=== PATIENT | male | born 1975 | race Caucasian/White ===

== ENCOUNTER 2017-01-04 20:48 | Emergency (ER) | payer MEDICAID ==
[2017-01-04 20:48] VITALS: BMI 26.6
[2017-01-04 21:31] VITALS: BP 97/65; PULSE 95; RESP 20; TEMP 98.7; O2SAT 96
--- NOTE | 2017-01-04 22:20 | C.PDOC ---
History Of Present Illness A 41 y/o male is here for detox of heroin, Xanax, alcohol abuse with his last uses being today. Pt denies suicidal or homicidal ideation, or any physical complaints at this time. Time Seen by Provider: 01/04/17 21:58 Chief Complaint (Nursing): Substance Abuse History Per: Patient History/Exam Limitations: no limitations Onset/Duration Of Symptoms: Hrs Current Symptoms Are (Timing): Still Present Suicide/Self Injury Attempted (Context): None Modifying Factor(s): Narcotics (Xanax, heroin, alcohol) Severity: Mild Associated Symptoms: denies: Suicidal Thoughts, Suicidal Plan Involuntary Hold By: None Recent travel outside of the [place]: No Additional History Per: Patient Past Medical History Reviewed: Historical Data, Nursing Documentation, Vital Signs Vital Signs: Last Vital Signs Temp 98.7 F 01/04/17 21:25 Pulse 95 H 01/04/17 21:25 Resp 20 01/04/17 22:41 BP 97/65 L 01/04/17 21:25 Pulse Ox 96 01/04/17 22:34 - Medical History PMH: Anxiety, Back Problems, Depression, HTN, Seizures Denies: Bipolar Disorder, Personality Disorder, Post Traumatic Stress Disorder, Schizophrenia - [facility] Procedures CLOSURE SKIN & SUBCUTANEOUS NEC (03/09/15) INJECT/INFUSE NEC (02/06/05) Family History: States: Unknown Family Hx - Social History Hx Tobacco Use: Yes Hx Alcohol Use: Yes Hx Substance Use: Yes - Immunization History Hx Tetanus Toxoid Vaccination: No Hx Influenza Vaccination: No Hx Pneumococcal Vaccination: No Review Of Systems Constitutional: Positive for: Other (heroin, xanax, alcohol abuse ). Negative for: Fever, Chills Gastrointestinal: Negative for: Nausea, Vomiting, Abdominal Pain Psych: Negative for: Suicidal ideation, Other (Homicidal ideation) Physical Exam - Physical Exam Appears: Non-toxic, No Acute Distress Skin: Warm, Dry Head: Atraumatic, Normacephalic Eye(s): bilateral: Other (Pupils small but reactive) Oral Mucosa: Moist Throat: Normal, No Exudate Cardiovascular: Rhythm Regular, No Murmur Respiratory: Normal Breath Sounds, No Accessory Muscle Use, No Wheezing Gastrointestinal/Abdominal: Soft, No Tenderness Back: Normal Inspection Extremity: Normal ROM, No Pedal Edema, Capillary Refill (<2secs), No Deformity Neurological/Psych: Oriented x3, Normal Speech, Other (No focal deficit) Gait: Steady ED Course And Treatment O2 Sat by Pulse Oximetry: 96 (RA) Pulse Ox Interpretation: Normal Progress Note: Impression: 41 y/o male is here for detox of heroin, xanax, alcohol abuse with his last uses today. Plans: Detox, reassess. Pt was called in for detox however came in 3 hrs late and now there are no beds available as per insemination worker who also explained same to pt. Pt reassured that he will be called once ther is a male bed available. Pt left without signing his discharge papers Disposition Counseled Patient/Family Regarding: Diagnosis, Need For Followup - Disposition Disposition: HOME/ ROUTINE Disposition Time: 22:19 Condition: STABLE Additional Instructions: Please call back Crisis department for available detox beds Return to ER if worse Instructions: Polysubstance Abuse (ED) - Clinical Impression Clinical Impression: Drug dependence - Scribe Statement The provider has reviewed the documentation as recorded by the Scribe Leta magdaleno All medical record entries made by the Elveribkristan were at my direction and personally dictated by me. I have reviewed the chart and agree that the record accurately reflects my personal performance of the history, physical exam, medical decision making, and the department course for this patient. I have also personally directed, reviewed, and agree with the discharge instructions and disposition.
== END 2017-01-04 22:41 | disposition home or self-care (01) ==
LOC: C.ER 20:48
DX: F11.20 Opioid dependence, uncomplicated (principal); F19.20 Other psychoactive substance dependence, uncomplicated; F10.10 Alcohol abuse, uncomplicated; Y90.9 Presence of alcohol in blood, level not specified

== ENCOUNTER 2018-11-03 09:01 | Inpatient (IN) | payer MEDICAID ==
[2018-11-03 09:13] VITALS: BMI 25.8
--- NOTE | 2018-11-03 10:49 | C.PDOC ---
History Of Present Illness 43 y/o male presents to ed for detox, uses 20-30 bags heroin iv, last at 5 am, drinks 5 24 oz beers and 3 pints liquor daily. last drink at 2230. c/o diarrhea and feeling nauseous as well as chronic back pain. Time Seen by Provider: 11/03/18 10:11 Chief Complaint (Nursing): Substance Abuse History Per: Patient History/Exam Limitations: no limitations Onset/Duration Of Symptoms: Days Past Medical History Reviewed: Historical Data, Nursing Documentation, Vital Signs Vital Signs: Last Vital Signs Temp Pulse 74 11/03/18 09:09 Resp 18 11/03/18 09:09 BP 109/71 11/03/18 09:09 Pulse Ox 97 11/03/18 09:09 - Medical History PMH: Anxiety, Back Problems, Depression, HTN, Seizures - [facility] Procedures CLOSURE SKIN & SUBCUTANEOUS NEC (03/09/15) INJECT/INFUSE NEC (02/06/05) Family History: States: Unknown Family Hx - Social History Hx Tobacco Use: Yes Hx Alcohol Use: Yes Hx Substance Use: Yes - Immunization History Hx Tetanus Toxoid Vaccination: No Hx Influenza Vaccination: No Hx Pneumococcal Vaccination: No Review Of Systems Gastrointestinal: Positive for: Nausea, Diarrhea Musculoskeletal: Positive for: Back Pain Physical Exam - Physical Exam Appears: Non-toxic, No Acute Distress Skin: No Rash Head: Atraumatic, Normacephalic Eye(s): bilateral: PERRL, EOMI Tongue: Other (mild tremors ) Neck: Supple Chest: No Tenderness Cardiovascular: Rhythm Regular, No Murmur Respiratory: No Rales, No Rhonchi, No Wheezing, Other (CTA b/l ) Gastrointestinal/Abdominal: Soft, No Tenderness, No Distention Extremity: Capillary Refill (<2 sec ), No Deformity, No Swelling, Other (mild tremore to hands ) Neurological/Psych: Oriented x3, Normal Speech, Normal Cognition ED Course And Treatment - Laboratory Results Result Diagrams: 11/03/18 11:25 11/03/18 11:25 O2 Sat by Pulse Oximetry: 97 (RA) Pulse Ox Interpretation: Normal Medical Decision Making Medical Decision Making: plans: -- chem labs -- blood work -- Ibuprofen -- Zofran 1256 pt is medically cleared for detox. 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 - Scribe Statement The provider has reviewed the documentation as recorded by the Saeed Dowell Do All medical record entries made by the Scribe were at my direction and personally dictated by me. I have reviewed the chart and agree that the record accurately reflects my personal performance of the history, physical exam, medical decision making, and the department course for this patient. I have also personally directed, reviewed, and agree with the discharge instructions and disposition.
[2018-11-03 11:34] LABS: BASO # 0.1 K/uL (0.0-0.2); BASO % 0.8 % (0.0-2.0); EOS # 0.2 K/uL (0.0-0.7); EOS % 3.4 % (0.0-4.0); HEMOGLOBIN 14.6 g/dL (12.0-18.0); LYMPH # 2.6 K/uL (1.0-4.3); LYMPH % 34.7 % (20.0-40.0); MEAN CELL VOLUME 90.6 fL (80.0-94.0); MEAN CORPUSCULAR HEMOGLOBIN 30.7 pg (27.0-31.0); MEAN CORPUSCULAR HGB CONC 33.9 g/dL (33.0-37.0); MEAN PLATELET VOLUME 7.9 fL (7.2-11.7); MONO # 0.5 K/uL (0.0-0.8); MONO % 6.9 % (0.0-10.0); NEUT % 54.2 % (50.0-75.0); NRBC % 0.1 % (0.0-2.0); RBC 4.75 Mil/uL (4.40-5.90); RED CELL DISTRIBUTION WIDTH 13.7 % (11.5-14.5); WHITE BLOOD COUNT 7.4 K/uL (4.8-10.8)
[2018-11-03 11:49] LABS: ALB/GLOB RATIO 1.3 (1.0-2.1); ALBUMIN 4.2 g/dL (3.5-5.0); ALT/SGPT 16 U/L (21-72); AST/SGOT 32 U/L (17-59); BLOOD UREA NITROGEN 16 mg/dL (9-20); CALCIUM 9.2 mg/dl (8.6-10.4); GFR NON-AFRICAN AMERICAN > 60
[2018-11-03 11:51] LABS: URINE AMORPHOUS SEDIMENT MODERATE /ul (<OCC); URINE BILIRUBIN NEGATIVE (NEGATIVE); URINE BLOOD NEGATIVE (NEGATIVE); URINE CLARITY Turbid (Clear); URINE COLOR Amber (YELLOW); URINE GLUCOSE (UA) NORMAL (Normal); URINE LEUKOCYTE ESTERASE NEG Leu/uL (Negative); URINE PROTEIN 1+ mg/dL (NEGATIVE)
[2018-11-03 12:24] LABS: BARBITURATES, UR NEGATIVE (NEGATIVE); PHENCYCLIDINE, UR NEGATIVE (NEGATIVE)
[2018-11-03 12:55] LABS: BENZODIAZEPINES, UR POSITIVE (NEGATIVE); OPIATES, UR POSITIVE (NEGATIVE)
[2018-11-03] MEDS ORDERED: Aluminum Hydroxide/Magnesium Hydroxide Susp (30 mL) PO PRN (13:52)
--- NOTE | 2018-11-03 14:37 | PCM.PSYCH ---
Initial Psychiatric Evaluation - Initial Psychiatric Evaluation Type of Admission: Voluntary Legal Status: Capacity Chief Complaint (in patient's own words): "I'm sick" History of Present Illness and Precipitating Events: Patient is seen, chart reviewed and plan discussed with team. Patient is a 43 year old male, currently from his , no children. He lives in an apartment with his mother on and off. 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 Patient presented to detox for heroin and alcohol use. He currently uses 20-40 bags per day IV. His last use was yesterday evening at 7pm, 5-6 bags. He has been using heroin since he was 14. He has been to detox twice in the past, in [facility] and [facility]. He has been to rehab once, six months ago. His longest period of sobriety was in 2003, for 4 years. He attributes his relapse to coming back to [place]. He has been in a methadone program in the past, 4 years ago, and have received suboxone which he believes he is allergic to. Currently he complains of withdrawal symptoms of nausea, vomiting, stomach aches, anxiety and chills. However, he also looks sedated. COWS is 7 and likely to increase. He got zofran in ED, but he may have used again. Patient also reports alcohol, cocaine, Xanax and cigarette use. He drinks 2-3 pints of vodka per day, Xanax 2 mg, 2-3 times per week, cocaine sporadically. He has used cocaine and Xanax two days ago. He reports feeling agitated, anxious and nervous when not using drugs. He has wdw sx fromalcohol but denies He stated being in and out of assisted due to shoplifting and selling things. He reported feeling depressed due to separation from one month ago. He denies suicidal and homicidal ideations, but has overdosed in the past in May 2018 unintentionally. Upon discharge, he stated wanting to leave [place] and would like to go a program outside of [place]. Psych Hx Anxiety and sleep disorder, depression. Fam Psych Hx denies PMHx Seizures (last seizure within a year) Trauma Work injury, separation from Current Medications: Active Medications Generic Name Dose Route Start Last Admin Trade Name Freq PRN Reason Stop Dose Admin Al Hydrox/Mg Hydrox/Simethicone 30 ml 11/03/18 13:52 Maalox 30 Ml PO TID PRN Indigestion / Heartburn Clonidine HCl 0.1 mg 11/03/18 13:52 Catapres PO Q4 PRN COWS Score More or Equal to 5 Ibuprofen 600 mg 11/03/18 13:52 Motrin Tab PO Q6 PRN Pain, moderate (4-7) Loperamide HCl 2 mg 11/03/18 13:52 Imodium PO Q8 PRN Diarrhea Ondansetron HCl 4 mg 11/03/18 13:52 Zofran Tab PO Q8 PRN Nausea/Vomiting Past Psychiatric History - Past Psychiatric History Pertinent Medical Hx (Current Medical&Sleep Prob, Allergies): Allergies Allergy/AdvReac Type Severity Reaction Status Date / Time FISH Allergy hives Verified 11/03/18 09:07 No Known Home Med 01/14/15 Review of Systems - Psychiatric Psychiatric: Abnormal Sleep Pattern, Anhedonia, Anxiety, Change in Appetite, Depression, Difficulty Concentrating, Irritability. absent: Hallucinations, Homicidal Ideation, Suicidal Ideation Mental Status Examination - Personal Presentation Personal Presentation: Looks stated age - Affect Affect: Constricted - Motor Activity Motor Activity: Calm - Reliability in Providing Information Reliability in Providing Information: Good - Speech Speech: Organized - Mood Mood: Depressed - Formal Thought Process Formal Thought Process: No Impairment - Cognitive Functions Orientation: Person, Place, Situation, Time Sensorium: Drowsy Attention/Concentration: Easily distracted Estimate of Intelligence: Average Judgement: Intact, as evidence by: Insight regarding need for hospitalization Memory: Recent intact, as evidence by: Ability to recall events of the day, Remote intact, as evidenced by: Abilit to recall sig. life events - Risk Risk: Seizure, Withdrawal, Diminished functioning - Strength & Assets Inventory Strength & Assets Inventory: Cooperative - Limitations Limitations: Other DSM 5 DX - DSM 5 DSM 5 Diagnosis: Opioid withdrawal Opioid use d/o severe Alcohol use d/o - severe Sedative hypnotic use d/o - severe Depressive d/o unspecified - Recommended/Plan of Treatment Treatment Recommendations and Plan of Treatment: Taper with methadone Gabapentin for augmentation if needed As needed medications All risks, benefits and alternatives of the meds discussed, and the pt agreed and understood. Attend groups and activities Supportive therapy and psychoeducation VT for abstinence CBT for relapse prevention Encourage MAT Refer to rehab or IOP, and self-help groups Teach healthy lifestyle methods, i.e. diet, exercise, meditation Smoking cessation with VT Nicotine patch if needed 34 min Projected ELOS: 4-5 days - Smoking Cessation Smoking Cessation Initiated: Yes
--- NOTE | 2018-11-03 21:54 | PCM.BM ---
Treatment Plan Problems - Problems identified on initial assessmt Denial Date Initiated: 11/03/18 Time Initiated: 21:52 Assessment reference: NA Status: Active Defensive Coping Date Initiated: 11/03/18 Time Initiated: 21:53 Assessment reference: NA Status: Active Low Motivation to change Date Initiated: 11/03/18 Time Initiated: 21:53 Assessment reference: NA Status: Active Treatment assets and liabiliti Patient Assests: ADL independent, negotiates basic needs, cognitively intact Patient Liabilities: substance abuse - Milieu Protocol Maintain good personal hygiene: daily Encourage regular showers, daily Remind patient to perform daily oral care, daily Assist patient to perform ADL's Conduct patient checks and document Observation sheet: Q15 minutes Maintain personal safety: every shift Educate patient to report safety concerns to staff, every shift Monitor environment for contraband/sharps Medication safety: Monitor for expected outcome, potential side effects: every shift, Assess barriers to learning: every shift, Assess readiness for medication education: every shift
--- NOTE | 2018-11-03 22:46 | CP.PCM.PCO ---
Physician Communication Note - Physician Communication Note Physician Communication Note: Pt started wdw significantly. Admitted to detox inpatient now
[2018-11-04] MEDS ORDERED: Multiple Vitamins Tab PO SCH (11:15)
[2018-11-04 13:09] VITALS: BP 92/43; PULSE 50; RESP 18; TEMP 97.3; O2SAT 99
--- NOTE | 2018-11-04 23:08 | PCM.PYCHDC ---
Mental Status Examination - Mental Status Examination Orientation: Person, Place, Situation, Time Memory: Intact Mood: Anxious Affect: Other (Appropriate) Speech: Appropriate Attention: WNL Concentration: WNL Association: WNL Fund of Knowledge: WNL Formal Thought Process: No Impairment Description of patient's judgement and insight: Poor Psychotic Thoughts and Behaviors: None Suicidal Ideation: No Current Homicidal Ideation?: No Discharge Summary - Discharge Note Reason for Hospitalization: Opioid withdrawal Opioid use d/o severe Alcohol use d/o - severe Sedative hypnotic use d/o - severe Depressive d/o unspecified Laboratory Data: Reviewed Consultations:: List each consultation separately and include: 1. Reason for request. 2. Findings. 3. Follow-up Summary of Hospital Course include:: 1. Description of specific treatment plan utilized for patients during their course of treatmen. 2. Summarize the time- course for resolution of acute symptoms and/or regressed behaviors. 3. Describe issues identified and worked on during hospitalization. 4. Describe medication utilized. 5. Describe medical problems identified and treated. 6. Reassessment of suicide risk Summary of Hospital Course: Patient is seen, chart reviewed and plan discussed with team. Patient is a 43 year old male, currently from his , no children. He lives in an apartment with his mother on and off. 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 Patient presented to detox for heroin and alcohol use. He currently uses 20-40 bags per day IV. His last use was yesterday evening at 7pm, 5-6 bags. He has been using heroin since he was 14. He has been to detox twice in the past, in [facility] and [facility]. He has been to rehab once, six months ago. His longest period of sobriety was in 2003, for 4 years. He attributes his relapse to coming back to [place]. He has been in a methadone program in the past, 4 years ago, and have received suboxone which he believes he is allergic to. Currently he complains of withdrawal symptoms of nausea, vomiting, stomach aches, anxiety and chills. However, he also looks sedated. COWS is 7 and likely to increase. He got zofran in ED, but he may have used again. Patient also reports alcohol, cocaine, Xanax and cigarette use. He drinks 2-3 pints of vodka per day, Xanax 2 mg, 2-3 times per week, cocaine sporadically. He has used cocaine and Xanax two days ago. He reports feeling agitated, anxious and nervous when not using drugs. He has wdw sx fromalcohol but denies He stated being in and out of [facility] due to shoplifting and selling things. He reported feeling depressed due to separation from one month ago. He denies suicidal and homicidal ideations, but has overdosed in the past in May 2018 unintentionally. Upon discharge, he stated wanting to leave [place] and would like to go a program outside of [place]. During his stay in the hospital patient was started on methadone taper for opioid withdrawal symptoms and also on Librium for alcohol withdrawal symptoms. Patient was also started on other PRN medications. Once on day 2 of detox, patient decided to leave without completion of the treatment. Patient was educated to complete treatment, patient refused. Patient was also educated that in case of any adverse events including relapse, decompensation, overdose or even of the patient, patient will be responsible for his actions. Patient understood and agreed with above but still refused to stay and left the unit AGAINST MEDICAL ADVICE. At the time of evaluation and discharge, patient had no delusions, no auditory or visual hallucinations, no suicidal ideations or homicidal ideations. - Final Diagnosis (DSM 5) Condition upon Discharge: FAIR Disposition: AGAINST MEDICAL ADVICE - Smoking Cessation Smoking Cessation Medication prescribed: No - Antipsychotic Medications Pt discharged on 2 or more routine antipsychotic medications: No
== END 2018-11-04 12:55 | disposition left against medical advice (07) | DRG 743 ==
LOC: C.ER 09:01 → C.7D 12:57 → OBSVTOIN 21:54
PROVIDERS: ADMIT Psychiatry & Neurology Psychiatry; ATTEND Psychiatry & Neurology Psychiatry
PROC: HZ2ZZZZ Detoxification Services for Substance Abuse Treatment (ICD-10-PCS; principal; 2018-11-03)
PROC: HZ81ZZZ Medication Management for Substance Abuse Treatment, Methadone Maintenance (ICD-10-PCS; 2018-11-03)
PROC: HZ56ZZZ Individual Psychotherapy for Substance Abuse Treatment, Psychoeducation (ICD-10-PCS; 2018-11-03)
PROC: GZ3ZZZZ Medication Management (ICD-10-PCS; 2018-11-03)
DX: F11.23 Opioid dependence with withdrawal (principal); F10.239 Alcohol dependence with withdrawal, unspecified; F32.9 Major depressive disorder, single episode, unspecified; F41.9 Anxiety disorder, unspecified; F17.210 Nicotine dependence, cigarettes, uncomplicated; G89.29 Other chronic pain; R56.9 Unspecified convulsions; I10 Essential (primary) hypertension